=== PATIENT | female | born 1960 | race Caucasian/White ===

== ENCOUNTER 2017-04-07 17:32 | Inpatient (IN) | payer OTHER ==
[2017-04-07] MEDS ORDERED: NS 0.9% 1000 ML*IV.FLUID IV ONE (18:27)
[2017-04-07] MEDS ORDERED: Acetaminophen TAB* 325 MG PO ONE (18:50)
[2017-04-07 19:00] LABS: Hematocrit 37 % (35-47); Hemoglobin 12.9 g/dl (12.0-16.0); Mean Corpuscular HGB Conc 35 g/dl (31-36); Mean Corpuscular Hemoglobin 35 pg (27-31); Mean Corpuscular Volume 101 fL (80-97); Mean Platelet Volume 8 um3 (7.4-10.4); Red Cell Distribution Width 14 % (10.5-15); White Blood Count 12.8 10^3/ul (3.5-10.8)
[2017-04-07 19:15] LABS: Albumin 3.2 g/dL (3.2-5.2); BUN/Creatinine Ratio 13.2 (8-20); Calcium 8.2 mg/dL (8.6-10.3); EGFR African American 33.4 (>60); Globulin 3.2 g/dL (2-4); Potassium 3.5 mmol/L (3.5-5.0); Total Bilirubin 0.9 mg/dL (0.2-1.0); Total Protein 6.4 g/dL (6.4-8.9)
[2017-04-07 19:16] LABS: Troponin I 0.02 ng/mL (<0.04)
[2017-04-07] MEDS ORDERED: cefTRIAXone(*) 1 GM in NS 0.9% 50 ML* 50 ML IVPB ONE (19:27)
[2017-04-07] MEDS ORDERED: Azithromycin IV(*) 500 MG in NS 0.9% 250 ML* 250 ML IVPB ONE (19:27)
--- NOTE | 2017-04-07 20:18 | RAD ---
Indication: Sepsis. Single frontal view of the chest performed at 1850 hours was reviewed. Comparison is made with previous exam dated September 22, 2014. No mediastinal shift is noted. Heart is of normal size and configuration. Lung landaverde appear clear. IMPRESSION: NO ACTIVE CARDIOPULMONARY DISEASE IS NOTED.
[2017-04-07] MEDS ORDERED: Benzonatate CAP* 100 MG PO PRN (21:55)
[2017-04-07] MEDS ORDERED: NS 0.9% 1000 ML* 2,000 ML IV ONE (21:55)
[2017-04-07] MEDS ORDERED: HYDROcodone/ACETAMIN 5-325 MG* 1 TAB PO PRN (21:55)
[2017-04-07] MEDS ORDERED: NS 0.9% 1000 ML* 1,000 ML IV SCH ×2 (22:00→22:06)
[2017-04-07] MEDS ORDERED: Albuterol 2.5 MG/3 ML NEB.SOL* (0.083%) INH PRN (22:11)
--- NOTE | 2017-04-07 23:28 | HP ---
CC: Primary Care Provider ADDENDUM: ASSESSMENT AND PLAN: Ms. Carrizales is a 57-year-old female with history of hypertension, hyperlipidemia, and depression, who was diagnosed, based on clinical features of influenza last week, has been taking Tamiflu over the last several days, feeling no better, who presented to the emergency room after seeing her primary on the day of admission where she was found to be hypotensive. 1. Hypotension. I suspect the patient's hypotension is secondary to marked volume depletion from being ill over the last several days and taking her usual dose of hydrochlorothiazide and lisinopril. The patient has received 2 L of IV fluid in the emergency room and will receive another 2 L bolus now. Following that the patient will then be on normal at 100 mL per hour. I am going to hold her hydrochlorothiazide and lisinopril for now. The patient is mildly symptomatic with this as she is lightheaded upon standing; however, her mentation is good at this point. 2. Acute renal failure. The patient appears to have developed acute renal failure. Her baseline creatinine is around 0.7. Her creatinine is markedly elevated at 1.97 today. I again suspect her acute renal failure is prerenal in nature from poor oral intake and taking hydrochlorothiazide. She will be aggressively hydrated. A followup BMP will be obtained tomorrow morning. Her lisinopril and hydrochlorothiazide are being held as above. Additionally, her Tamiflu will be renally dosed. 3. Influenza. The patient was diagnosed with influenza clinically. Her flu swab at this point is negative. I will go ahead and continue another 3 doses of Tamiflu, which is what she has left, though this will be renally dosed at 30 mg p.o. b.i.d. I do suspect that the patient's symptoms are likely viral in nature. Blood cultures have been ordered, but is yet to be obtained. We will make sure that these are sent. A urinalysis will also be sent. The patient has been complaining of headache; however, I suspect this is a viral headache and not meningitis as the patient has no other features of meningitis. 4. Hypertension. As above, the patient is now hypotensive and her medications will be held. 5. Depression. The patient will be maintained on her usual dose of Prozac. 6. DVT prophylaxis: According to the Adult Thrombosis Prophylaxis Risk Factor Assessment Guide, the patient has a total risk factor score of 2, making her moderate risk. She will be placed on heparin 5000 units subcutaneous q.12 hours. 7. Code status is full and, again, the patient's is her healthcare proxy. TIME SPENT: 55 minutes were spent admitting this patient. [id number]/[facility] #: [id number] AUGUSTINE
--- NOTE | 2017-04-08 01:01 | HP ---
CONTINUATION ADDENDUM NOW INCLUDED ON THIS REPORT CC: Isabel Blackwood NP * HISTORY AND PHYSICAL: DATE OF ADMISSION: 04/07/17 PRIMARY CARE PROVIDER: Isabel Blackwood NP CHIEF COMPLAINT: Hypotension. HISTORY OF PRESENT ILLNESS: Ms. Carrizales is a 57-year-old female, who this past , 04/02/17, was diagnosed presumptively with influenza. At the time of reevaluation by Isabel Blackwood, she was complaining of fever, chills, cough, shortness of breath, and headache. She was started on Tamiflu and was given a prescription for Tessalon Perles p.r.n. The patient states over the last several days, she has felt no better. She states that she feels incredibly terrible, very tired, and weak. On 04/06/17, the patient presented to her primary care provider's office again for continued complaints of headache. She described having shooting pain that would come and go into her head. CT scan was ordered and performed as an outpatient yesterday. It was read as a negative unenhanced CT of the brain. There were some unchanged left parietal bone lesions compared to the November 2016 MRI favoring benign etiology. The patient represented to the primary again on the day of admission with complaints of continued severe headache, continued fever, sweat, chills, very poor appetite, and increasing weakness. At that time, her blood pressure was noted to be markedly low and the patient was referred to the emergency room for admission. The patient states that while she had not been eating or drinking real well over the last several days, she has been taking her medications, which include lisinopril and hydrochlorothiazide. The patient continues to have complaints listed above, but in addition has been lightheaded upon standing and unsteady on her feet per her . The patient states that she has lost 10 pounds over the last 5 days. PAST MEDICAL HISTORY: 1. Hypertension. 2. Hypercholesterolemia. 3. Depression. PAST SURGICAL HISTORY: 1. . 2. Laparoscopy x2. 3. Tubal surgery. ALLERGIES: No known drug allergies. MEDICATIONS: 1. Omeprazole 20 mg p.o. daily. 2. Tamiflu 75 mg p.o. b.i.d. 3. Lisinopril 10 mg p.o. daily. 4. Hydrochlorothiazide 25 mg p.o. daily. 5. Fluoxetine 20 mg p.o. daily. 6. Tessalon 100 mg p.o. t.i.d. p.r.n. cough. 7. Tylenol No. 3 two tabs p.o. q.4 hours p.r.n. pain. 8. Spiriva 1 puff inhaled daily. 9. Flonase 2 squirts to both nostrils daily. 10. ProAir RespiClick 1 inhalation q.4 to 6 hours p.r.n. shortness of breath. FAMILY HISTORY: Mom at the age of 73. She had Alzheimer's. Dad at the age of 68. He had MO. SOCIAL HISTORY: The patient is an active smoker of one half pack per day. She states that she has been smoking since the age of 12. She has not, however, smoked since becoming ill over the last week. She does admit to drinking approximately 6 ounces of an alcoholic beverage daily. She works at [employer]. She is . She has one child. Her , Trevor, is her healthcare proxy. REVIEW OF SYSTEMS: The patient admits to fevers, chills, anorexia as above. No chest pain, no lower extremity edema. She admits to cough and shortness of breath as above and in addition, she states that occasionally when she coughs, she brings up some mucous. No persistent nausea or vomiting. However, the patient has vomited a couple of times after having severe coughing fit. No abdominal pain. She has not moved her bowels in several days. No hematuria, no dysuria, no focal sensory loss, no sudden changes in vision. She does state she has occasional difficulty with swallowing related to having Schatzki ring. She aches all over. She has no rashes, no anxiety or depression that is worse than usual. PHYSICAL EXAMINATION GENERAL: The patient is a well-developed, obese female, lying in bed, appearing to be unwell, but in no acute distress. VITAL SIGNS: Blood pressure 93/50, pulse 79, respirations 19, temp 102, O2 sat 94% on 3 L. HEENT: Pupils are equal. There are approximately 2 to 3 mm. Extraocular muscles are intact. Oropharynx is clear. Oral mucosa is dry. There is no submandibular, cervical, or supraclavicular adenopathy. Thyroid is not enlarged. No thyroid nodules are noted. PULMONARY: Lungs are clear to auscultation bilaterally. CARDIAC: Normal S1, S2. Regular rate and rhythm. I do not appreciate any murmurs. There is no lower extremity edema. ABDOMEN: Bowel sounds present. Abdomen is soft, nontender, and nondistended. MUSCULOSKELETAL: There is no cyanosis or clubbing of the digits. There is full active range of motion of all 4 extremities. SKIN: Warm and dry. There are no rashes. There is purplish discoloration of the ankles and dorsum of the feet bilaterally that appears to be related to venous insufficiency. NEUROLOGIC: Cranial nerves II through XII are grossly intact. Sensation is intact to light touch throughout. Strength is 5/5 and symmetric in both upper and lower extremities bilaterally. PSYCH: The patient is alert. She is oriented x3. Affect appears appropriate. DIAGNOSTIC STUDIES/LAB DATA: WBC 12.8, hemoglobin 12.9, hematocrit 37, platelets 169. INR 1.30. Sodium 128, potassium 3.5, chloride 94, CO2 26, BUN 26, creatinine 1.97, glucose 122, lactic acid 1.1, calcium 8.2. Bilirubin 0.9, AST 23, ALT 26, alk phos 71, troponin 0.02. Albumin 3.2, influenza A and B negative. EKG reveals normal sinus rhythm with an incomplete right bundle- branch block and no ST-T wave abnormalities. Chest x-ray, no active cardiopulmonary disease noted. ASSESSMENT AND PLAN: Ms. Carrizales is a 57-year-old female, who is diagnosed based on clinical concern last with influenza. CONTINUATION ADDENDUM: ASSESSMENT AND PLAN: Ms. Carrizales is a 57-year-old female with history of hypertension, hyperlipidemia, and depression, who was diagnosed, based on clinical features of influenza last week, has been taking Tamiflu over the last several days, feeling no better, who presented to the emergency room after seeing her primary on the day of admission where she was found to be hypotensive. 1. Hypotension. I suspect the patient's hypotension is secondary to marked volume depletion from being ill over the last several days and taking her usual dose of hydrochlorothiazide and lisinopril. The patient has received 2 L of IV fluid in the emergency room and will receive another 2 L bolus now. Following that the patient will then be on normal at 100 mL per hour. I am going to hold her hydrochlorothiazide and lisinopril for now. The patient is mildly symptomatic with this as she is lightheaded upon standing; however, her mentation is good at this point. 2. Acute renal failure. The patient appears to have developed acute renal failure. Her baseline creatinine is around 0.7. Her creatinine is markedly elevated at 1.97 today. I again suspect her acute renal failure is prerenal in nature from poor oral intake and taking hydrochlorothiazide. She will be aggressively hydrated. A followup BMP will be obtained tomorrow morning. Her lisinopril and hydrochlorothiazide are being held as above. Additionally, her Tamiflu will be renally dosed. 3. Influenza. The patient was diagnosed with influenza clinically. Her flu swab at this point is negative. I will go ahead and continue another 3 doses of Tamiflu, which is what she has left, though this will be renally dosed at 30 mg p.o. b.i.d. I do suspect that the patient's symptoms are likely viral in nature. Blood cultures have been ordered, but is yet to be obtained. We will make sure that these are sent. A urinalysis will also be sent. The patient has been complaining of headache; however, I suspect this is a viral headache and not meningitis as the patient has no other features of meningitis. 4. Hypertension. As above, the patient is now hypotensive and her medications will be held. 5. Depression. The patient will be maintained on her usual dose of Prozac. 6. DVT prophylaxis: According to the Adult Thrombosis Prophylaxis Risk Factor Assessment Guide, the patient has a total risk factor score of 2, making her moderate risk. She will be placed on heparin 5000 units subcutaneous q.12 hours. 7. Code status is full and, again, the patient's is her healthcare proxy. TIME SPENT: 55 minutes were spent admitting this patient. [id number]/[facility] #: [id number]/[facility] #: [id number] AUGUSTINE
[2017-04-08] MEDS: Oseltamivir CAP* 30 MG CAP PO SCH ×3 (01:39→21:02)
[2017-04-08] MEDS: Acetaminophen TAB* 325 MG PO PRN ×2 (01:39→08:49)
[2017-04-08] MEDS: Omeprazole CAP* 20 MG PO SCH (08:49)
[2017-04-08] MEDS: Fluticasone NASAL SPRAY 50MCG* 16 gm SPRAY BTL BOTH NARES SCH (08:49)
[2017-04-08] MEDS: FLUoxetine CAP* 20 MG PO SCH (08:50)
[2017-04-08] MEDS: Heparin VIAL(*) 5000 UNITS/ML VIAL (FIVE THOUSAND) SUBCUT SCH ×2 (08:50→21:05)
[2017-04-08 09:02] LABS: Calcium 7.9 mg/dL (8.6-10.3); EGFR African American 69.8 (>60); EGFR Non-African American 54.2 (>60); Potassium 3.2 mmol/L (3.5-5.0)
--- NOTE | 2017-04-08 14:36 | PN ---
Subjective Date of Service: 04/08/17 Interval History: Patient seen and examined at bedside. Reports fever, intermittent chills, bilateral restoration headache - describes as "feels like my head is going to explode ". Denies shortness of breath, chest discomfort, N/V/D. Family History: Unchanged from Admission Social History: Unchanged from Admission Past Medical History: Unchanged from Admission Objective Active Medications: Acetaminophen (Tylenol Tab*) 650 mg PO Q4H PRN Reason: pain or fever Hydrocodone Bitart/Acetaminophen ([place] 5-325 Tab*) 1 tab PO Q4H PRN Reason: PAIN Albuterol (Ventolin 2.5 Mg/3 Ml Neb.Amy*) 2.5 mg INH Q4H PRN Reason: SOB/ WHEEZING Benzonatate (Tessalon Cap*) 200 mg PO TID PRN Reason: cough Fluoxetine HCl (Prozac Cap*) 20 mg PO DAILY ABILIO Fluticasone Propionate (Flonase Nasal [place] 50mcg*) 2 spray BOTH NARES DAILY [facility] Heparin Sodium (Porcine) (Heparin Vial(*)) 5,000 units SUBCUT Q12HR ABILIO Sodium Chloride (Ns 0.9% 1000 Ml*) 1,000 mls @ 100 mls/hr IV PER RATE ABILIO Omeprazole (Prilosec Cap*) 20 mg PO DAILY ABILIO Oseltamivir Phosphate (Tamiflu Cap*) 30 mg PO BID ABILIO Stop: 04/12/17 09:01 Vital Signs 04/07/17 04/07/17 04/07/17 22:00 22:30 22:41 Temperature 98.7 F Pulse Rate 71 75 Respiratory 12 20 Rate Blood Pressure 84/67 83/51 (mmHg) O2 Sat by Pulse 95 94 Oximetry 04/08/17 04/08/17 04/08/17 01:21 03:18 07:44 Temperature 100.7 F 101.3 F 102.3 F Pulse Rate 83 80 86 Respiratory 18 16 20 Rate Blood Pressure 94/54 96/50 116/52 (mmHg) O2 Sat by Pulse 90 93 97 Oximetry 04/08/17 04/08/17 04/08/17 08:00 08:59 11:07 Temperature 99.4 F Pulse Rate 80 Respiratory 20 18 Rate Blood Pressure 110/64 (mmHg) O2 Sat by Pulse 97 94 Oximetry Oxygen Devices in Use Now: None Appearance: NAD, laying in bed Ears/Nose/Mouth/Throat: Mucous Membranes Moist, - - No tenderness with plapation to temples or sinuses Respiratory: Symmetrical Chest Expansion and Respiratory Effort, Clear to Auscultation Cardiovascular: NL Sounds; No Murmurs; No JVD, RRR Abdominal: NL Sounds; No Tenderness; No Distention Extremities: No Edema Skin: No Rash or Ulcers Neurological: Alert and Oriented x 3, NL Muscle Strength and Tone Lines/Tubes/Other Access: Clean, Dry and Intact Peripheral IV - site benign Nutrition: Taking PO's Result Diagrams: 04/07/17 18:50 04/08/17 08:29 Additional Lab and Data: Assess/Plan/Problems-Billing Assessment: Ms. Carrizales is a 57 yo female with PMH significant for HTN, HLD and depression who was diagnosed with influenza last week and presented to the emergency room with hypotension. - Patient Problems (1) Hypotension Comment: - SBP improved - Suspect secondary to volume depletion (2) MAIKEL (acute kidney injury) Code(s): N17.9 - ACUTE KIDNEY FAILURE, UNSPECIFIED SNOMED Code(s): 99697621 Comment: - Improving with IVFs - Suspect this is pre-renal secondary to poor PO intake and taking HCTZ - Continue IVFs and hold HCTZ and lisinopril - Renally dose medications (3) Influenza Code(s): J11.1 - FLU DUE TO UNIDENTIFIED INFLUENZA VIRUS W OTH RESP MANIFEST SNOMED Code(s): 4565780 Comment: - Febrile, temp 102.3 max - Continue Tamiflu (4) Headache Code(s): R51 - HEADACHE SNOMED Code(s): 84904614 Comment: - Brain CT 04/06 - negative - Suspect this is a viral headache and not meningitis (no other features of meningitis) - Supportive care - Consider LP if headache persists (5) Depression Code(s): F32.9 - MAJOR DEPRESSIVE DISORDER, SINGLE EPISODE, UNSPECIFIED SNOMED Code(s): 26891878 Comment: - Continue Prozac (6) HTN (hypertension) Code(s): I10 - ESSENTIAL (PRIMARY) HYPERTENSION SNOMED Code(s): 24754296 Comment: - Hypotensive to normotensive - Continue to hold Lispinopril and HCTZ (7) DVT prophylaxis Code(s): VVF1637 - SNOMED Code(s): 201963884 Comment: - SQ heparin (8) Full code status Code(s): Z78.9 - OTHER SPECIFIED HEALTH STATUS SNOMED Code(s): 719292451 Status and Disposition: OBV to Inpatient. Discharge to home when medically stable, possibly in the AM.
[2017-04-08] MEDS: Ibuprofen TAB* 600 MG PO PRN (17:25)
[2017-04-09 06:16] LABS: Hematocrit 39 % (35-47); Hemoglobin 13.6 g/dl (12.0-16.0); Mean Corpuscular HGB Conc 35 g/dl (31-36); Mean Corpuscular Hemoglobin 35 pg (27-31); Mean Corpuscular Volume 100 fL (80-97); Mean Platelet Volume 9 um3 (7.4-10.4); Red Blood Count 3.88 10^6/ul (4.0-5.4); Red Cell Distribution Width 14 % (10.5-15); White Blood Count 11.2 10^3/ul (3.5-10.8)
[2017-04-09 06:35] LABS: BUN/Creatinine Ratio 21.1 (8-20); Calcium 8.5 mg/dL (8.6-10.3); EGFR African American 100.2 (>60); EGFR Non-African American 77.9 (>60); Potassium 3.5 mmol/L (3.5-5.0)
[2017-04-09 08:12] VITALS: BP 136/67
[2017-04-09] MEDS: Ibuprofen TAB* 600 MG PO PRN (08:28)
[2017-04-09] MEDS: FLUoxetine CAP* 20 MG PO SCH (08:29)
[2017-04-09] MEDS: Omeprazole CAP* 20 MG PO SCH (08:29)
[2017-04-09] MEDS: Fluticasone NASAL SPRAY 50MCG* 16 gm SPRAY BTL BOTH NARES SCH (08:29)
[2017-04-09] MEDS: Heparin VIAL(*) 5000 UNITS/ML VIAL (FIVE THOUSAND) SUBCUT SCH (08:29)
[2017-04-09] MEDS: Oseltamivir CAP* 30 MG CAP PO SCH (08:29)
--- NOTE | 2017-04-09 12:10 | PN ---
Subjective Date of Service: 04/09/17 Interval History: Patient seen and examined at bedside. Pt reports a fever this morning, that broke after she went outside. Discussed with Pt the need to stay until she is fever free for 24 hours and she requests to leave this afternoon. Denies chills , shortness of breath, chest discomfort, N/V/D. Pt states that she continues to have a headache, but it is improved. Family History: Unchanged from Admission Social History: Unchanged from Admission Past Medical History: Unchanged from Admission Objective Active Medications: Acetaminophen (Tylenol Tab*) 650 mg PO Q4H PRN Reason: pain or fever Hydrocodone Bitart/Acetaminophen ([place] 5-325 Tab*) 1 tab PO Q4H PRN Reason: PAIN Albuterol (Ventolin 2.5 Mg/3 Ml Neb.Amy*) 2.5 mg INH Q4H PRN Reason: SOB/ WHEEZING Benzonatate (Tessalon Cap*) 200 mg PO TID PRN Reason: cough Fluoxetine HCl (Prozac Cap*) 20 mg PO DAILY [facility] Fluticasone Propionate (Flonase Nasal [place] 50mcg*) 2 spray BOTH NARES DAILY [facility] Heparin Sodium (Porcine) (Heparin Vial(*)) 5,000 units SUBCUT Q12HR ABILIO Sodium Chloride (Ns 0.9% 1000 Ml*) 1,000 mls @ 100 mls/hr IV PER RATE ABILIO Ibuprofen (Motrin Tab*) 600 mg PO Q6H PRN Reason: FEVER/PAIN Omeprazole (Prilosec Cap*) 20 mg PO DAILY ABILIO Oseltamivir Phosphate (Tamiflu Cap*) 30 mg PO BID ABILIO Stop: 04/12/17 09:01 Vital Signs 04/08/17 04/08/17 04/08/17 15:48 20:00 20:35 Temperature 102.9 F 97.5 F Pulse Rate 98 69 Respiratory 16 18 16 Rate Blood Pressure 153/57 112/60 (mmHg) O2 Sat by Pulse 93 95 Oximetry 04/09/17 04/09/17 04/09/17 00:08 04:27 07:50 Temperature 97.5 F 100.7 F 101.9 F Pulse Rate 71 98 93 Respiratory 16 20 18 Rate Blood Pressure 111/66 151/79 136/67 (mmHg) O2 Sat by Pulse 97 95 94 Oximetry Oxygen Devices in Use Now: None Appearance: NAD, laying in bed Ears/Nose/Mouth/Throat: Mucous Membranes Moist Respiratory: Symmetrical Chest Expansion and Respiratory Effort, Clear to Auscultation Cardiovascular: NL Sounds; No Murmurs; No JVD, RRR Abdominal: NL Sounds; No Tenderness; No Distention Extremities: No Edema Skin: No Rash or Ulcers Neurological: Alert and Oriented x 3, NL Muscle Strength and Tone Lines/Tubes/Other Access: Clean, Dry and Intact Peripheral IV - site benign Nutrition: Taking PO's Result Diagrams: 04/09/17 05:55 04/09/17 05:54 Additional Lab and Data: Assess/Plan/Problems-Billing Assessment: Ms. Carrizales is a 57 yo female with PMH significant for HTN, HLD and depression who was diagnosed with influenza last week and presented to the emergency room with hypotension. - Patient Problems (1) Hypotension Comment: - Resolved - Suspect secondary to volume depletion (2) MAIKEL (acute kidney injury) Code(s): N17.9 - ACUTE KIDNEY FAILURE, UNSPECIFIED SNOMED Code(s): 81728791 Comment: - Resolved with IVFs - Suspect this was pre-renal secondary to poor PO intake and taking HCTZ (3) Influenza Code(s): J11.1 - FLU DUE TO UNIDENTIFIED INFLUENZA VIRUS W OTH RESP MANIFEST SNOMED Code(s): 4296055 Comment: - Febrile, temp 102.3 max - Continue Tamiflu (4) Headache Code(s): R51 - HEADACHE SNOMED Code(s): 64407182 Comment: - Improving - Brain CT 04/06 - negative - Suspect this is a viral headache and not meningitis (no other features of meningitis) - Supportive care - Consider LP if headache persists (5) Depression Code(s): F32.9 - MAJOR DEPRESSIVE DISORDER, SINGLE EPISODE, UNSPECIFIED SNOMED Code(s): 49687013 Comment: - Continue Prozac (6) HTN (hypertension) Code(s): I10 - ESSENTIAL (PRIMARY) HYPERTENSION SNOMED Code(s): 16255648 Comment: - Normotensive - Resume Lispinopril and HCTZ (7) DVT prophylaxis Code(s): [id number] - SNOMED Code(s): 440644405 Comment: - SQ heparin (8) Full code status Code(s): Z78.9 - OTHER SPECIFIED HEALTH STATUS SNOMED Code(s): 919628211 Status and Disposition: Inpatient. Discharge to home when medically stable, possibly in the AM. Pt is requesting to leave AMA today.
--- NOTE | 2017-04-10 18:17 | DS ---
CC: Isabel Blackwood NP* DISCHARGE SUMMARY: DATE OF ADMISSION: 04/07/17 DATE OF DISCHARGE: 04/09/17 - against medical advice. ATTENDING PHYSICIAN: Dr. Kristofer Chong* (dictated by Kendrick Gudino NP). PRIMARY CARE PROVIDER: Isabel Blackwood NP. PRIMARY DIAGNOSES: 1. Viral illness. 2. Hypotension, resolved. 3. Acute renal failure, resolved. SECONDARY DIAGNOSES: 1. Hypertension. 2. Depression. STUDIES WHILE IN THE HOSPITAL: Chest x-ray on 04/07/17. Radiologist impression : No active cardiopulmonary disease is noted. DISCHARGE MEDICATIONS: Continued home medications, 1. Prilosec 20 mg oral daily. 2. Lisinopril 10 mg oral daily. 3. Hydrochlorothiazide 25 mg oral daily. 4. Prozac 20 mg oral daily. 5. Tessalon 100 mg oral 3 times daily as needed for cough. 6. Acetaminophen/codeine 300/30 mL 2 tablets oral every 4 hours as needed for cough. 7. Spiriva 1 capsule inhalation daily. 8. Flonase 2 sprays to both nares daily. 9. ProAir RespiClick 108 mcg inhalation every 4 to 6 hours as needed for shortness of breath or wheezing. Discontinued home medications: Tamiflu. BRIEF HISTORY OF PRESENT ILLNESS/HOSPITAL COURSE: Ms. Carrizales is a 57-year-old female with past medical history significant for hypertension, hypercholesterolemia, and depression, who was clinically diagnosed with influenza by her primary care provider when she presented complaining of fever, chills, cough, shortness of breath and headache. The patient was also started on Tessalon Perles. She felt that over several days after starting the medication, she was not feeling better. She was feeling terrible, weak, and tired. The patient again presented to her primary care provider's office on where she continued to complain of headaches. She described these as shooting pains that would come and go in her head. She had a CT performed as an outpatient showing a negative unenhanced CT of the brain. The patient re- presented again on 04/07/17 to her primary care provider's office with complaints of severe headache, fevers, sweats, chills, poor appetite, and increasing weakness. The patient reports not eating or drinking well over the last several days and continued to take her home medications. It was also reported over the last 5 days. At that point, the patient's blood pressure was found to be markedly low. She was referred to the emergency room for further evaluation. While in the emergency room, the patient had labs that were significant for leukocytosis with a white blood cell count of 12.8, creatinine of 1.97, her lactic acid was 1.1. EKG showing a sinus rhythm with an incomplete right bundle branch block and no ST-T wave abnormalities. She had a chest x-ray showing no acute cardiopulmonary disease. Hospitalist were asked to evaluate the patient for admission. While in the hospital, the patient's hypotension resolved. It was felt this was secondary to volume depletion from the patient being ill and she continued to take her hydrochlorothiazide and lisinopril. She received IV hydration. Her blood pressures improved. Her acute kidney injury resolved during her stay. She was noted to have mild hyponatremia and her white count improved slightly and was down to 11.2 on the day of discharge. For the patient's influenza, she completed a 5- day course of Tamiflu. The patient continue to complain of headaches but on the day of discharge reported that her headache was improved. The patient was resumed on her antihypertensives, continued on her Prozac. The patient has continued to be febrile with temperature up to 101.9 today and up to a 102.9 yesterday. She has been mildly tachycardiac in the 90s. DISCHARGE PLAN: Again, Ms. Carrizales is leaving against medical advice today. She has been instructed to follow up with her primary care provider. She has an appointment with Valerie Bro NP, on 05/17/17 at 9 a.m. The patient continues to complain of fevers and headaches. I would recommend workup with a possible LP to evaluate for the possibility of viral meningitis. The patient has been instructed to return to the emergency room for chest pain, shortness of breath. We did discuss with the patient her risks of leaving against medical advice including progression of her illness, permanent disability, and possible . The patient states understanding and would like to leave against medical advice. This is a summarized report of a complex medical history and hospital stay. For further details, please see the entire medical record. TIME SPENT: Time for this discharge was approximately 45 minutes, greater than half of that was spent with the patient discussing the risks of leaving against medical advice. KENDRICK GUDINO, DYE CAN OPERATOR [id number]/[facility] #: [id number] AUGUSTINE
== END 2017-04-09 12:55 | disposition left against medical advice (07) | DRG 315 ==
LOC: ED 17:32 → MEDTELE 21:55 → OBSVTOIN 04-08 14:44
PROVIDERS: ADMIT Hospitalist; ATTEND Internal Medicine
DX: I95.9 Hypotension, unspecified (principal); N17.9 Acute kidney failure, unspecified; K22.2 Esophageal obstruction; E87.1 Hypo-osmolality and hyponatremia; I10 Essential (primary) hypertension; E78.00 Pure hypercholesterolemia, unspecified; F32.9 Major depressive disorder, single episode, unspecified; F17.210 Nicotine dependence, cigarettes, uncomplicated; E66.9 Obesity, unspecified; J11.1 Influenza due to unidentified influenza virus with other respiratory manifestations; R51 Headache; I45.10 Unspecified right bundle-branch block; E86.9 Volume depletion, unspecified; R00.0 Tachycardia, unspecified; Z82.49 Family history of ischemic heart disease and other diseases of the circulatory system; Z82.0 Family history of epilepsy and other diseases of the nervous system; Z72.89 Other problems related to lifestyle; Z68.39 Body mass index [BMI] 39.0-39.9, adult
CPT/HCPCS: 36415; 71010; 80048; 80053; 83605; 84484; 85025; 85610; 85730; 87040; 87502; 93005; A9270-GY; G0378; J0456; J0696; J1644

== ENCOUNTER 2017-05-22 06:12 | Emergency (ER) | payer OTHER ==
[2017-05-22] MEDS ORDERED: Meclizine TAB* 12.5 MG PO ONE (07:36)
[2017-05-22] MEDS ORDERED: Diazepam TAB(*) 5 MG PO ONE (07:36)
[2017-05-22 08:14] LABS: Hematocrit 40 % (35-47); Hemoglobin 13.9 g/dl (12.0-16.0); Mean Corpuscular HGB Conc 34 g/dl (31-36); Mean Corpuscular Hemoglobin 35 pg (27-31); Mean Corpuscular Volume 101 fL (80-97); Mean Platelet Volume 8 um3 (7.4-10.4); Red Blood Count 4.01 10^6/ul (4.0-5.4); Red Cell Distribution Width 15 % (10.5-15); White Blood Count 8.4 10^3/ul (3.5-10.8)
--- NOTE | 2017-05-22 08:14 | RAD ---
INDICATION: Dizziness COMPARISON: None TECHNIQUE: Noncontrast axial source images were acquired from the skull base to the vertex. FINDINGS: Ventricles/sulci: The ventricles and cisterns are normal in size and configuration for age. Brain parenchyma: There is no focal parenchymal finding, evidence of intracranial mass, or intracranial mass effect. Intracranial hemorrhage:None. Extra-axial spaces: There are no abnormal extra axial fluid collections or evidence of extra-axial mass. Calvarium: There is no calvarial fracture or other calvarial abnormality. Scalp: There is no evidence of scalp or extracalvarial soft tissue abnormality. Paranasal sinuses/mastoid: The paranasal sinuses and mastoid air cells are clear. Other: None. IMPRESSION: No acute intracranial findings
--- NOTE | 2017-05-22 08:15 | RAD ---
INDICATION: Dizziness COMPARISON: April 07, 2017 TECHNIQUE: AP seated and lateral views were obtained. FINDINGS: Bones/Soft Tissues: There are no acute bony findings. Cardiomediastinal: The cardiomediastinal silhouette is normal. Lungs: There are no infiltrates. Pleura: There are no pleural effusions. Other: None IMPRESSION: NO ACTIVE DISEASE.
[2017-05-22 08:28] LABS: Albumin 3.8 g/dL (3.2-5.2); BUN/Creatinine Ratio 25.4 (8-20); C Reactive Protein 5.67 mg/L (< 5.00); Calcium 9.8 mg/dL (8.6-10.3); EGFR African American 108.4 (>60); EGFR Non-African American 84.3 (>60); Magnesium 2.1 mg/dL (1.9-2.7); Total Bilirubin 0.4 mg/dL (0.2-1.0); Total Protein 6.8 g/dL (6.4-8.9)
[2017-05-22 08:45] LABS: TSH (Thyroid Stimulating Horm) 0.76 mcIU/mL (0.34-5.60)
[2017-05-22 10:01] LABS: Urine Bacteria Absent (Absent); Urine Bilirubin Negative (Negative); Urine Glucose Negative (Negative); Urine Nitrite Negative (Negative)
[2017-05-22 10:28] VITALS: BP 137/74
--- NOTE | 2017-05-23 07:29 | ED ---
Miguel Pozo Angela, scribed for Louie Enriquez MD on 05/22/17 at 0730 . Dizziness - HPI Summary HPI Summary: This pt is a 57 y/o female presenting to [facility] c/o dizziness since 0530 today. Pt reports she was in the kitchen this morning making breakfast when she felt extremely dizzy. She describes "everything was moving." She notes she had a concussion 3 weeks ago but she was getting better. Pt had a cat scan then that was negative. Pt states any change in position increases her dizziness. She denies nausea, vomiting, chest pain, SOB. - History Of Current Complaint Chief Complaint: EDDizziness Stated Complaint: DIZZINESS Hx Obtained From: Patient Onset/Duration: Still Present, Suddenly Timing: Hours Severity Currently: Severe Character: Dizzy Aggravating Factor(s): Position Change Associated Signs And Symptoms: Negative: Nausea, Vomiting, Chest Pain, SOB - Allergies/Home Medications Allergies/Adverse Reactions: Allergies Allergy/AdvReac Type Severity Reaction Status Date / Time No Known Allergies Allergy Verified 12/11/16 14:05 Home Medications: Home Medications LoraTADine TAB(NF) [Claritin 10 MG TAB(NF)] 10 mg PO DAILY PRN 05/22/17 [ History Confirmed 05/22/17] PMH/Surg Hx/FS Hx/Imm Hx Endocrine/Hematology History: Denies: Hx Diabetes, Hx Anemia Cardiovascular History: Reports: Hx Hypertension Denies: Hx Pacemaker/ICD Respiratory History: Reports: Hx Asthma GI History: Reports: Hx Hiatal Hernia Denies: Hx Jaundice History: Denies: Hx Renal Disease Sensory History: Reports: Hx Contacts or Glasses Denies: Hx Hearing Aid Opthamlomology History: Reports: Hx Contacts or Glasses Psychiatric History: Denies: Hx Panic Disorder - Cancer History Cancer Type, Location and Year: BASAL CELL REMOVED - NO OTHER TREATMENT Hx Chemotherapy: No Hx Radiation Therapy: No - Surgical History Surgery Procedure, Year, and Place: TUBAL LIGATION. ECTOPIC 1998. C SECTION. LAPAROTOMY FOR INFERTILITY Infectious Disease History: No Infectious Disease History: Denies: Traveled Outside the [place] in Last 30 Days - Family History Known Family History: Positive: Other - Mother: Alzheimer's disease. Father: [place] - Social History Alcohol Use: Daily Alcohol Amount: 6 oz vodka Substance Use Type: Reports: None Smoking Status (MU): Current Every Day Smoker Review of Systems Negative: Fever, Chills Negative: Chest Pain Negative: Shortness Of Breath Negative: Vomiting, Nausea Neurological: Other - dizziness All Other Systems Reviewed And Are Negative: Yes Physical Exam - Summary Physical Exam Summary: VITAL SIGNS: Reviewed. GENERAL: Patient is a well-developed and nourished female who is lying comfortable in the stretcher. Patient is not in any acute respiratory distress. HEAD AND FACE: No signs of trauma. No ecchymosis, hematomas or skull depressions. No sinus tenderness. EYES: PERRLA, EOMI x 2, No injected conjunctiva, no nystagmus. No photophobia. EARS: Hearing grossly intact. Ear canals and tympanic membranes are within normal limits. MOUTH: Oropharynx within normal limits. NECK: Supple, trachea is midline, no adenopathy, no JVD, no carotid bruit, no c- spine tenderness, neck with full ROM. No meningeal signs, no Kernig's or brudzinskis signs. CHEST: Symmetric, no tenderness at palpation LUNGS: Clear to auscultation bilaterally. No wheezing or crackles. CVS: Regular rate and rhythm, S1 and S2 present, no murmurs or gallops appreciated. ABDOMEN: Soft, non-tender. No signs of distention. No rebound no guarding, and no masses palpated. Bowel sounds are normal. EXTREMITIES: FROM in all major joints, no edema, no cyanosis or clubbing. NEURO: Alert and oriented x 3. No acute neurological deficits. Speech is normal and follows commands. NIH score scale = 0. SKIN: Dry and warm GCS: 15 Triage Information Reviewed: Yes Vital Signs On Initial Exam: Initial Vitals Temp Pulse Resp BP Pulse Ox 99.8 F 82 14 149/83 97 05/22/17 06:23 05/22/17 06:23 05/22/17 06:23 05/22/17 06:23 05/22/17 06:23 Vital Signs Reviewed: Yes - Freddy Coma Scale Coma Scale Total: 15 Diagnostics - Vital Signs Vital Signs Temp Pulse Resp BP Pulse Ox 05/22/17 07:22 73 13 132/78 98 05/22/17 06:23 99.8 F 82 14 149/83 97 - Laboratory Lab Results: Lab Results 05/22/17 05/22/17 05/22/17 Range/Units 07:34 07:34 07:34 WBC 8.4 (3.5-10.8) 10^3/ul RBC 4.01 (4.0-5.4) 10^6/ul Hgb 13.9 (12.0-16.0) g/dl Hct 40 (35-47) % MCV 101 H (80-97) fL MCH 35 H (27-31) pg MCHC 34 (31-36) g/dl RDW 15 (10.5-15) % Plt Count 202 (150-450) 10^3/ul MPV 8 (7.4-10.4) um3 Neut % (Auto) 73.1 (38-83) % Lymph % (Auto) 16.9 L (25-47) % Gaines % (Auto) 8.5 (1-9) % Eos % (Auto) 1.0 (0-6) % Baso % (Auto) 0.5 (0-2) % Absolute Neuts (auto) 6.2 (1.5-7.7) 10^3/ul Absolute Lymphs (auto) 1.4 (1.0-4.8) 10^3/ul Absolute Monos (auto) 0.7 (0-0.8) 10^3/ul Absolute Eos (auto) 0.1 (0-0.6) 10^3/ul Absolute Basos (auto) 0 (0-0.2) 10^3/ul Absolute Nucleated RBC 0.01 10^3/ul Nucleated RBC % 0.1 Sodium 136 (133-145) mmol/L Potassium 4.0 (3.5-5.0) mmol/L Chloride 102 (101-111) mmol/L Carbon Dioxide 25 (22-32) mmol/L Anion Gap 9 (2-11) mmol/L BUN 18 (6-24) mg/dL Creatinine 0.71 (0.51-0.95) mg/dL Est GFR ( Amer) 108.4 (>60) Est GFR (Non-Af Amer) 84.3 (>60) BUN/Creatinine Ratio 25.4 H (8-20) Glucose 97 (70-100) mg/dL Lactic Acid (0.5-2.0) mmol/L Calcium 9.8 (8.6-10.3) mg/dL Magnesium 2.1 (1.9-2.7) mg/dL Total Bilirubin 0.40 (0.2-1.0) mg/dL AST 30 (13-39) U/L ALT 36 (7-52) U/L Alkaline Phosphatase 85 (34-104) U/L Total Creatine Kinase 72 (10-223) U/L Troponin I 0.00 (<0.04) ng/mL C-Reactive Protein 5.67 H (< 5.00) mg/L B-Natriuretic Peptide 42 ( - 100) pg/mL Total Protein 6.8 (6.4-8.9) g/dL Albumin 3.8 (3.2-5.2) g/dL Globulin 3.0 (2-4) g/dL Albumin/Globulin Ratio 1.3 (1-3) TSH 0.76 (0.34-5.60) mcIU/mL Urine Color Urine Appearance Urine pH (5-9) Ur Specific [place] (1.010-1.030) Urine Protein (Negative) Urine Ketones (Negative) Urine Blood (Negative) Urine Nitrate (Negative) Urine Bilirubin (Negative) Urine Urobilinogen (Negative) Ur Leukocyte Esterase (Negative) Urine WBC (Auto) (Absent) Urine RBC (Auto) (Absent) Ur Squamous Epith Cells (Absent) Urine Bacteria (Absent) Urine Glucose (Negative) 05/22/17 05/22/17 Range/Units 07:34 09:40 WBC (3.5-10.8) 10^3/ul RBC (4.0-5.4) 10^6/ul Hgb (12.0-16.0) g/dl Hct (35-47) % MCV (80-97) fL MCH (27-31) pg MCHC (31-36) g/dl RDW (10.5-15) % Plt Count (150-450) 10^3/ul MPV (7.4-10.4) um3 Neut % (Auto) (38-83) % Lymph % (Auto) (25-47) % Gaines % (Auto) (1-9) % Eos % (Auto) (0-6) % Baso % (Auto) (0-2) % Absolute Neuts (auto) (1.5-7.7) 10^3/ul Absolute Lymphs (auto) (1.0-4.8) 10^3/ul Absolute Monos (auto) (0-0.8) 10^3/ul Absolute Eos (auto) (0-0.6) 10^3/ul Absolute Basos (auto) (0-0.2) 10^3/ul Absolute Nucleated RBC 10^3/ul Nucleated RBC % Sodium (133-145) mmol/L Potassium (3.5-5.0) mmol/L Chloride (101-111) mmol/L Carbon Dioxide (22-32) mmol/L Anion Gap (2-11) mmol/L BUN (6-24) mg/dL Creatinine (0.51-0.95) mg/dL Est GFR ( Amer) (>60) Est GFR (Non-Af Amer) (>60) BUN/Creatinine Ratio (8-20) Glucose (70-100) mg/dL Lactic Acid 2.2 H* (0.5-2.0) mmol/L Calcium (8.6-10.3) mg/dL Magnesium (1.9-2.7) mg/dL Total Bilirubin (0.2-1.0) mg/dL AST (13-39) U/L ALT (7-52) U/L Alkaline Phosphatase (34-104) U/L Total Creatine Kinase (10-223) U/L Troponin I (<0.04) ng/mL C-Reactive Protein (< 5.00) mg/L B-Natriuretic Peptide ( - 100) pg/mL Total Protein (6.4-8.9) g/dL Albumin (3.2-5.2) g/dL Globulin (2-4) g/dL Albumin/Globulin Ratio (1-3) TSH (0.34-5.60) mcIU/mL Urine Color Yellow Urine Appearance Clear Urine pH 7.0 (5-9) Ur Specific [place] 1.019 (1.010-1.030) Urine Protein Negative (Negative) Urine Ketones Negative (Negative) Urine Blood 1+ H (Negative) Urine Nitrate Negative (Negative) Urine Bilirubin Negative (Negative) Urine Urobilinogen Negative (Negative) Ur Leukocyte Esterase Negative (Negative) Urine WBC (Auto) Absent (Absent) Urine RBC (Auto) 1+(3-5/hpf) H (Absent) Ur Squamous Epith Cells Present H (Absent) Urine Bacteria Absent (Absent) Urine Glucose Negative (Negative) Result Diagrams: 05/22/17 07:34 05/22/17 07:34 Lab Statement: Any lab studies that have been ordered have been reviewed, and results considered in the medical decision making process. - Radiology Chest XR Xray Interpretation: No Acute Changes - IMPRESSION: No active disease. ED physician has reviewed this radiology report and agrees. Radiology Interpretation Completed By: Radiologist - CT Brain CT CT Interpretation: No Acute Changes - IMPRESSION: No acute intracranial findings. ED physician has reviewed this radiology report and agrees. CT Interpretation Completed By: Radiologist - EKG 0639 Cardiac Rate: NL EKG Rhythm: Sinus Rhythm - at 74 bpm EKG Interpretation: No ST elevation Dizzy Course/Dx - Course Assessment/Plan: This pt is a 57 y/o female presenting to [facility] c/o dizziness since 529 today. Pt reports she was in the kitchen this morning making breakfast when she felt extremely dizzy. She describes "everything was moving." She notes she had a concussion 3 weeks ago but she was getting better. Pt had a cat scan then that was negative. Pt states any change in position increases her dizziness. She denies nausea, vomiting, chest pain, SOB. Test results without any significant abnormalities except for lactic acid of 2.2 and CRP of 5.67. Urinalysis is negative for UTI. Brain CT shows no acute intracranial findings. Chest XR shows no active disease. In the ED course the pt was given Antivert and valium and the symptoms improved. The pt has been dealing with this dizziness since after her head concussion about 3 weeks ago. The pt is scheduled to have physical therapy, however she is requesting Antivert until she starts the physical therapy. The pt was ambulated with a good steady walk, and her symptoms improved. Before discharge, the pt was neurological intact and hemodynamically stable. She will be discharged home with follow up from her PCP. Pt is hemodynamically stable, alert and oriented x3. - Diagnoses Differential Diagnosis/HQI/PQRI: Benign Paroxysmal Positional Vertigo, CVA, Labyrinthitis, Meniere's Disease, Transient Ischemic Attack Provider Diagnoses: Dizziness, Vertigo Discharge - Discharge Plan Condition: Stable Disposition: HOME Prescriptions: Meclizine TAB* [Antivert 12.5 TAB*] 25 mg PO TID PRN #30 tab PRN Reason: Dizziness Patient Education Materials: Vertigo (ED), Dizziness (ED) Referrals: Isabel Fajardo NP [Primary Care Provider] - Additional Instructions: Please follow up with your primary care provider. RETURN TO THE ED FOR ANY WORSENING OR NEW SYMPTOMS. The documentation as recorded by the Miguel arndt Angela accurately reflects the service I personally performed and the decisions made by Mina turner Walter, MD.
== END 2017-05-22 10:28 | disposition home or self-care (01) ==
LOC: ED 06:12
DX: R42 Dizziness and giddiness (principal); F17.210 Nicotine dependence, cigarettes, uncomplicated
CPT/HCPCS: 36415; 70450; 71020; 80053; 81003; 81015; 82550; 83605; 83735; 83880; 84443; 84484; 85025; 86140; 93005; 99283; A9270-GY